=== PATIENT | male | born 1960 | race American Indian/Alaskan Native ===

== ENCOUNTER 2019-11-02 11:28 | Observation (INO) | payer OTHER ==
--- NOTE | 2019-11-02 12:38 | Event Note ---
ED Screening Note ED Screening Note: 59-year-old F Pakistani male with past medical history of diabetes and uncontrolled hypertension presents emerge department complaining of left upper extremity weakness and and inability to open and close hands lasting for several minutes before resolving spontaneously. He reports no current chest pain no at axia but takes insulin, amlodipine, losartan, hydrochlorothiazide and daily aspirin. Plan evaluate his unilateral weakness This initial assessment/diagnostic orders/clinical plan/treatment(s) is/are subject to change based on patients health status, clinical progression and re- assessment by fellow clinical providers in the ED. Further treatment and workup at subsequent clinical providers discretion. Patient/guardian urged not to elope from the ED as their condition may be serious if not clinically assessed and managed. Initial orders include:
[2019-11-02 12:56] LABS: Basophils % (Auto) 0.4 % (0.0-1.8); Eosinophils % (Auto) 0.3 % (0.0-4.3); Hematocrit 44.1 % (35.5-45.6); Hemoglobin 14.9 gm/dl (11.8-15.2); Lymphocytes # (Auto) 2.1 K/mm3 (1.2-5.4); Lymphocytes % (Auto) 22.3 % (13.4-35.0); Mean Corpuscular HGB Conc 34 % (32-34); Mean Corpuscular Volume 81 fl (84-94); Monocytes # (Auto) 0.5 K/mm3 (0.0-0.8); Monocytes % (Auto) 5.4 % (0.0-7.3); Platelet Count 237 K/mm3 (140-440); Red Blood Count 5.44 M/mm3 (3.65-5.03); Red Cell Distribution Width 15.7 % (13.2-15.2)
[2019-11-02 13:07] LABS: INR 1.04 (0.87-1.13); Partial Thromboplastin Time 26.4 Sec. (24.2-36.6); Thrombin Time 16.3 Sec. (15.1-19.6)
[2019-11-02 13:16] LABS: Creatine Kinase MB 1.6 ng/mL (0.0-4.0)
--- NOTE | 2019-11-02 13:16 | XRay Report ---
CHEST 1 VIEW 12:54 PM INDICATION / CLINICAL INFORMATION: Left-sided weakness. COMPARISON: 09/20/2015. FINDINGS: SUPPORT DEVICES: None. HEART / MEDIASTINUM: The heart size and pulmonary vasculature are normal. LUNGS / PLEURA: No significant pulmonary or pleural abnormality. No pneumothorax. ADDITIONAL FINDINGS: No significant additional findings. IMPRESSION: No acute abnormality or significant change. Signer Name: Ankit Rodriguez MD Signed: 11/02/2019 1:11 PM Workstation Name: [id number]
[2019-11-02 13:17] LABS: Alanine Aminotransferase 26 units/L (7-56); Albumin 4.8 g/dL (3.9-5); BUN/Creatinine Ratio 19; Blood Urea Nitrogen 17 mg/dL (9-20); Calcium 10.3 mg/dL (8.4-10.2); Hemolysis Index 13
--- NOTE | 2019-11-02 13:21 | Emergency Department Report ---
HPI - General Chief Complaint: Neuro Symptoms/Deficit Time Seen by Provider: 11/02/19 13:03 - HPI HPI: 59-year-old male presents to the emergency department with the complaint of having left arm and left leg numbness and weakness yesterday late morning after taking a nap. The symptoms lasted for about 1 hour and then resolved. The patient has been having left leg neuropathic pain for the past month that has made it painful for him to walk, and the neuropathy has continued. He denies any headache, vision change, chest pain, fever. He has a history of diabetes and hypertension. His primary care physician is Dr. Halle Lee. No recent travel or sick contacts at home. ED Past Medical Hx - Past Medical History Previous Medical History?: Yes Hx Hypertension: Yes Hx Diabetes: Yes - Surgical History Past Surgical History?: No - Social History Smoking Status: Never Smoker - Medications Home Medications: Home Medications Medication Instructions Recorded Confirmed Last Taken Type Amlodipine Besylate [Norvasc] 10 mg PO DAILY #30 09/20/15 11/02/19 09/19/15 Rx yes Losartan [Cozaar] 50 mg PO QDAY #30 09/20/15 11/02/19 09/19/15 Rx yes hydroCHLOROthiazide [Hctz] 12.5 mg PO QDAY #30 capsule 09/20/15 11/02/19 Unknown Rx Glimepiride [Amaryl] 4 mg PO QAM 11/02/19 11/02/19 Unknown History ED Review of Systems ROS: Stated complaint: NUMBNESS UPPER ARM Other details as noted in HPI Comment: All other systems reviewed and negative Constitutional: denies: chills, fever Eyes: denies: eye pain, vision change ENT: denies: ear pain, throat pain Respiratory: denies: cough, shortness of breath Cardiovascular: denies: chest pain, palpitations Gastrointestinal: denies: abdominal pain, vomiting Genitourinary: denies: dysuria, discharge Musculoskeletal: myalgia. denies: joint swelling Skin: denies: rash, lesions Neurological: weakness, numbness. denies: headache Physical Exam - Physical Exam Vital Signs: Vital Signs 11/02/19 11:40 Temperature 98.3 F Pulse Rate 133 H Respiratory 18 Rate Blood Pressure 198/108 [Right] Physical Exam: GENERAL: The patient is well-developed well-nourished. HENT: Normocephalic. Atraumatic. Patient has moist mucous membranes. EYES: Extraocular motions are intact. No nystagmus. NECK: Supple. Trachea is midline. CHEST/LUNGS: Clear to auscultation. There is no respiratory distress noted. HEART/CARDIOVASCULAR: Regular. There is mild to moderate tachycardia. ABDOMEN: Abdomen is soft, nontender. Patient has normal bowel sounds. There is no abdominal distention. SKIN: Skin is warm and dry. NEURO: The patient is awake, alert, and oriented. The patient is cooperative. The patient has no focal neurologic deficits. Normal speech. Cranial nerves II through XII grossly intact. No pronator drift. No dysmetria. MUSCULOSKELETAL: There is no tenderness or deformity. There is no limitation range of motion. There is no evidence of acute injury. ED Course Vital Signs 11/02/19 11:40 Temperature 98.3 F Pulse Rate 133 H Respiratory 18 Rate Blood Pressure 198/108 [Right] ED Medical Decision Making - Lab Data Result diagrams: 11/02/19 12:44 11/02/19 12:44 - EKG Data -: EKG Interpreted by Me EKG shows normal: sinus rhythm, axis, intervals, QRS complexes, ST-T waves (Nonspecific ST-T waves) Rate: tachycardia (116 bpm) - EKG Data When compared to previous EKG there are: no significant change Interpretation: unchanged when compared t (09/19/15) - Radiology Data Radiology results: report reviewed, image reviewed interpreted by me: Chest x-ray does not show any acute process. There are no pleural effusions, obvious pneumonia and there is no pneumothorax. CT HEAD WITHOUT CONTRAST INDICATION / CLINICAL INFORMATION: Stroke symptoms. TECHNIQUE: Axial imaging performed from the skull apex through the skull base without the use of contrast. Sagittal and coronal reformatted images. All CT scans at this location are performed using CT dose reduction for ALARA by means of automated exposure control. COMPARISON: None available. FINDINGS: CEREBRAL PARENCHYMA: Mild nonspecific hypoattenuation is identified in the white matter consistent with chronic microangiopathy. No acute territorial infarct. HEMORRHAGE: None. EXTRA-AXIAL SPACES: Normal in size and morphology for the patient's age. VENTRICULAR SYSTEM: Normal in size and morphology for the patient's age. MIDLINE SHIFT OR HERNIATION: None. CEREBELLUM / BRAINSTEM: No sig nificant abnormality. CALVARIUM: No significant abnormality. ORBITS: Normal as visualized. PARANASAL SINUSES / MASTOID AIR CELLS: Normal as visualized. SOFT TISSUES of HEAD: No significant abnormality. ADDITIONAL FINDINGS: None. IMPRESSION: No acute intracranial abnormality. Mild nonspecific chronic white matter changes. - Medical Decision Making This patient presents to the emergency department with the complaint of having some left-sided numbness and weakness yesterday in which she was unable to move his left arm and left leg with full muscle strength for close to 1 hour. At the time of my examination the patient has had resolution of the symptoms and he does not have any focal, motor or sensory deficits and his cranial nerves are intact. CT scan of the head does not show any bleed, shift, mass, ischemia, or any other acute process. Patient's labs have been mostly unremarkable except for some mild hyperkalemia. Patient presented with some elevated blood pressure but it has come down to a more reasonable level. Overall this sounds like the patient had a TIA. He will be admitted to the hospital for further evaluation with possibilities including carotid ultrasound, echocardiogram, MRI. The patient has been accepted for admission by the hospitalist, Dr. Diaz. Critical Care Time: No Critical care attestation.: If time is entered above; I have spent that time in minutes in the direct care of this critically ill patient, excluding procedure time. ED Disposition Clinical Impression: TIA (transient ischemic attack), Hypertension, Hypokalemia Disposition: OP ADMIT IP TO THIS HOSP Is pt being admited?: Yes Condition: Fair Time of Disposition: 14:05
[2019-11-02] MEDS ORDERED: POTASSIUM CHLORIDE ER 10 MEQ TAB PO NR (13:39)
--- NOTE | 2019-11-02 13:51 | Cat Scan Report ---
CT HEAD WITHOUT CONTRAST INDICATION / CLINICAL INFORMATION: Stroke symptoms. TECHNIQUE: Axial imaging performed from the skull apex through the skull base without the use of cont rast. Sagittal and coronal reformatted images. All CT scans at this location are performed using CT dose reduction for ALARA by means of automated exposure control. COMPARISON: None available. FINDINGS: CEREBRAL PARENCHYMA: Mild nonspecific hypoattenuation is identified in the white matter consistent wi th chronic microangiopathy. No acute territorial infarct. HEMORRHAGE: None. EXTRA-AXIAL SPACES: Normal in size and morphology for the patient's age. VENTRICULAR SYSTEM: Normal in size and morphology for the patient's age. MIDLINE SHIFT OR HERNIATION: None. CEREBELLUM / BRAINSTEM: No significant abnormality. CALVARIUM: No significant abnormality. ORBITS: Normal as visualized. PARANASAL SINUSES / MASTOID AIR CELLS: Normal as visualized. SOFT TISSUES of HEAD: No significant abnormality. ADDITIONAL FINDINGS: None. IMPRESSION: No acute intracranial abnormality. Mild nonspecific chronic white matter changes. Signer Name: Dorian Tran Jr, MD Signed: 11/02/2019 1:47 PM Workstation Name: [id number]
[2019-11-02 14:25] LABS: Free T4 (Free Thyroxine) 1.04 ng/dL (0.76-1.46)
[2019-11-02] MEDS ORDERED: ASPIRIN 81 MG TAB CHEW PO ONE (14:34)
--- NOTE | 2019-11-02 15:23 | History and Physical Report ---
History of Present Illness Date of examination: 11/02/19 Date of admission: 11/02/19 14:05 Chief complaint: L upper extremity weakness History of present illness: 59-year-old male presents to the emergency department with the complaint of having left arm and left leg numbness and weakness yesterday late morning after taking a nap. The symptoms lasted for about 1 hour and then resolved. The patient has been having left leg neuropathic pain for the past month that has made it painful for him to walk, and the neuropathy has continued. He denies any headache, vision change, chest pain, fever. He has a history of diabetes and hypertension. His primary care physician is Dr. Halle Lee. No recent travel or sick contacts at home. - Past Medical History Previous Medical History?: Yes Hx Hypertension: Yes Hx Diabetes: Yes - Surgical History Past Surgical History?: No - Social History Smoking Status: Never Smoker - Medications Home Medications: Home Medications Medication Instructions Recorded Confirmed Last Taken Type Amlodipine Besylate [Norvasc] 10 mg PO DAILY #30 09/20/15 11/02/19 09/19/15 Rx yes Losartan [Cozaar] 50 mg PO QDAY #30 09/20/15 11/02/19 09/19/15 Rx yes hydroCHLOROthiazide [Hctz] 12.5 mg PO QDAY #30 capsule 09/20/15 11/02/19 Unknown Rx Glimepiride [Amaryl] 4 mg PO QAM 11/02/19 11/02/19 Unknown History Review of Systems ROS: Stated complaint: NUMBNESS UPPER ARM Other details as noted in HPI Comment: All other systems reviewed and negative Constitutional: denies: chills, fever Eyes: denies: eye pain, vision change ENT: denies: ear pain, throat pain Respiratory: denies: cough, shortness of breath Cardiovascular: denies: chest pain, palpitations Gastrointestinal: denies: abdominal pain, vomiting Genitourinary: denies: dysuria, discharge Musculoskeletal: myalgia. denies: joint swelling Skin: denies: rash, lesions Neurological: weakness, numbness. denies: headache Medications and Allergies Allergies Allergy/AdvReac Type Severity Reaction Status Date / Time No Known Allergies Allergy Unverified 09/19/15 22:11 Home Medications Medication Instructions Recorded Confirmed Last Taken Type Amlodipine Besylate [Norvasc] 10 mg PO DAILY #30 09/20/15 11/02/19 09/19/15 Rx yes Losartan [Cozaar] 50 mg PO QDAY #30 09/20/15 11/02/19 09/19/15 Rx yes hydroCHLOROthiazide [Hctz] 12.5 mg PO QDAY #30 capsule 09/20/15 11/02/19 Unknown Rx Glimepiride [Amaryl] 4 mg PO QAM 11/02/19 11/02/19 Unknown History Active Meds: Active Medications Potassium Chloride (K-Dur) 30 meq PO ONCE NR Stop: 11/02/19 16:00 Exam - Constitutional Vitals: Temp Pulse Resp BP Pulse Ox 98.3 F 106 H 26 H 147/81 11/02/19 11:40 11/02/19 13:21 11/02/19 14:09 11/02/19 14:01 General appearance: Present: no acute distress, well-nourished - EENT Eyes: Present: PERRL ENT: hearing intact, clear oral mucosa - Neck Neck: Present: supple, normal ROM - Respiratory Respiratory effort: normal Respiratory: bilateral: CTA - Cardiovascular Heart rate: 78 Rhythm: regular Heart Sounds: Present: S1 & S2. Absent: rub, click - Extremities Extremities: no ischemia, pulses intact, pulses symmetrical, No edema Peripheral Pulses: within normal limits - Abdominal General gastrointestinal: Present: soft, non-tender, non-distended, normal bowel sounds Male genitourinary: Present: normal - Rectal Rectal Exam: deferred - Integumentary Integumentary: Present: clear, warm, dry - Musculoskeletal Musculoskeletal: left sided weakness - Psychiatric Psychiatric: appropriate mood/affect, intact judgment & insight - Neurologic Neurologic: CNII-XII intact, moves all extremities - Allied Health Allied health notes reviewed: nursing, case management HEART Score - HEART Score Troponin: Troponin T < 0.010 ng/mL (0.00-0.029) 11/02/19 12:44 Results - Labs CBC & Chem 7: 11/03/19 03:40 11/03/19 03:40 Labs: Laboratory Last Values WBC 9.3 K/mm3 (4.5-11.0) 11/02/19 12:44 RBC 5.44 M/mm3 (3.65-5.03) H 11/02/19 12:44 Hgb 14.9 gm/dl (11.8-15.2) 11/02/19 12:44 Hct 44.1 % (35.5-45.6) 11/02/19 12:44 MCV 81 fl (84-94) L 11/02/19 12:44 MCH 27 pg (28-32) L 11/02/19 12:44 MCHC 34 % (32-34) 11/02/19 12:44 RDW 15.7 % (13.2-15.2) H 11/02/19 12:44 Plt Count 237 K/mm3 (140-440) 11/02/19 12:44 Lymph % (Auto) 22.3 % (13.4-35.0) 11/02/19 12:44 [place] % (Auto) 5.4 % (0.0-7.3) 11/02/19 12:44 Eos % (Auto) 0.3 % (0.0-4.3) 11/02/19 12:44 Baso % (Auto) 0.4 % (0.0-1.8) 11/02/19 12:44 Lymph # 2.1 K/mm3 (1.2-5.4) 11/02/19 12:44 [place] # 0.5 K/mm3 (0.0-0.8) 11/02/19 12:44 Eos # 0.0 K/mm3 (0.0-0.4) 11/02/19 12:44 Baso # 0.0 K/mm3 (0.0-0.1) 11/02/19 12:44 Seg Neutrophils % 71.6 % (40.0-70.0) H 11/02/19 12:44 Seg Neutrophils # 6.7 K/mm3 (1.8-7.7) 11/02/19 12:44 PT 13.4 Sec. (12.2-14.9) 11/02/19 12:40 INR 1.04 (0.87-1.13) 11/02/19 12:40 APTT 26.4 Sec. (24.2-36.6) 11/02/19 12:40 Thrombin Time 16.3 Sec. (15.1-19.6) 11/02/19 12:40 Sodium 140 mmol/L (137-145) 11/02/19 12:44 Potassium 3.2 mmol/L (3.6-5.0) L 11/02/19 12:44 Chloride 99.8 mmol/L (98-107) 11/02/19 12:44 Carbon Dioxide 26 mmol/L (22-30) 11/02/19 12:44 Anion Gap 17 mmol/L 11/02/19 12:44 BUN 17 mg/dL (9-20) 11/02/19 12:44 Creatinine 0.9 mg/dL (0.8-1.5) 11/02/19 12:44 Estimated GFR > 60 ml/min 11/02/19 12:44 BUN/Creatinine Ratio 19 % 11/02/19 12:44 Glucose 210 mg/dL (75-100) H 11/02/19 12:44 Calcium 10.3 mg/dL (8.4-10.2) H 11/02/19 12:44 Total Bilirubin 0.50 mg/dL (0.1-1.2) 11/02/19 12:44 AST 26 units/L (5-40) 11/02/19 12:44 ALT 26 units/L (7-56) 11/02/19 12:44 Alkaline Phosphatase 94 units/L (35-129) 11/02/19 12:44 Total Creatine Kinase 255 units/L (55-170) H 11/02/19 12:44 CK-MB (CK-2) 1.6 ng/mL (0.0-4.0) 11/02/19 12:44 CK-MB (CK-2) Rel Index 0.6 (0-4) 11/02/19 12:44 Troponin T < 0.010 ng/mL (0.00-0.029) 11/02/19 12:44 Total Protein 8.5 g/dL (6.3-8.2) H 11/02/19 12:44 Albumin 4.8 g/dL (3.9-5) 11/02/19 12:44 Albumin/Globulin Ratio 1.3 % 11/02/19 12:44 TSH 1.500 mlU/mL (0.270-4.200) 11/02/19 13:18 Free T4 1.04 ng/dL (0.76-1.46) 11/02/19 13:18 Short CBC 11/02/19 Range/Units 12:44 WBC 9.3 (4.5-11.0) K/mm3 Hgb 14.9 (11.8-15.2) gm/dl Hct 44.1 (35.5-45.6) % Plt Count 237 (140-440) K/mm3 BMP 11/02/19 12:44 Sodium 140 Potassium 3.2 L Chloride 99.8 Carbon Dioxide 26 BUN 17 Creatinine 0.9 Glucose 210 H Calcium 10.3 H Cardiac Enzymes 11/02/19 Range/Units 12:44 Total Creatine Kinase 255 H (55-170) units/L CK-MB (CK-2) 1.6 (0.0-4.0) ng/mL Troponin T < 0.010 (0.00-0.029) ng/mL Liver Function 11/02/19 Range/Units 12:44 Total Bilirubin 0.50 (0.1-1.2) mg/dL AST 26 (5-40) units/L ALT 26 (7-56) units/L Alkaline Phosphatase 94 (35-129) units/L Albumin 4.8 (3.9-5) g/dL Squires/IV: IV Catheter Type [Left INT / Saline Lock Antecubital] Assessment and Plan Advance Directives: Yes (Full code) VTE prophylaxis?: Chemical Plan of care discussed with patient/family: Yes - Patient Problems (1) Acute CVA (cerebrovascular accident) Current Visit: Yes Status: Acute Plan to address problem: MRI pending Clinical picture consistent with acute CVA Will get MRI/MRA and neurology consult (2) Hypertension Current Visit: Yes Status: Chronic Qualifiers: Hypertension type: essential hypertension Qualified Code(s): I10 - Essential (primary) hypertension Plan to address problem: Continue antihypertensives (3) Hypokalemia Current Visit: Yes Status: Acute Plan to address problem: Hypokalemia supplemented (4) T2DM (type 2 diabetes mellitus) Current Visit: Yes Status: Chronic Qualifiers: Diabetes mellitus detention insulin use: without detention use Plan to address problem: Continue hypoglycemics and adjust medications Check hemoglobin A1c (5) DVT prophylaxis Current Visit: Yes Status: Acute Plan to address problem: Heparin 5000 every 12 and GI prophylaxis
[2019-11-02] MEDS ORDERED: HYDROmorphone 1 MG/1 ML INJ IV PRN (15:34)
[2019-11-02] MEDS ORDERED: ACETAMINOPHEN 325 MG TAB PO PRN (15:34)
[2019-11-02] MEDS ORDERED: ONDANSETRON 4 MG/2 ML INJ IV PRN (15:34)
[2019-11-02] MEDS: INSULIN LISPRO 100 UNIT/ML SUB-Q SCH ×2 (18:17→21:26)
[2019-11-02 18:53] LABS: Chol/HDL Ratio 3.08 %
[2019-11-02] MEDS: oxyCODONE /ACETAMINOPHEN 5-325MG TAB PO PRN (21:30)
[2019-11-03 04:25] LABS: Basophils % (Auto) 0.3 % (0.0-1.8); Eosinophils # (Auto) 0.1 K/mm3 (0.0-0.4); Eosinophils % (Auto) 1.7 % (0.0-4.3); Hematocrit 41.6 % (35.5-45.6); Hemoglobin 13.9 gm/dl (11.8-15.2); Lymphocytes # (Auto) 2.6 K/mm3 (1.2-5.4); Lymphocytes % (Auto) 40.1 % (13.4-35.0); Mean Corpuscular HGB Conc 33 % (32-34); Mean Corpuscular Volume 81 fl (84-94); Monocytes # (Auto) 0.7 K/mm3 (0.0-0.8); Monocytes % (Auto) 10.7 % (0.0-7.3); Platelet Count 200 K/mm3 (140-440); Red Blood Count 5.15 M/mm3 (3.65-5.03); Red Cell Distribution Width 15.7 % (13.2-15.2)
[2019-11-03 04:43] LABS: Alanine Aminotransferase 22 units/L (7-56); Albumin 4.1 g/dL (3.9-5); BUN/Creatinine Ratio 24; Blood Urea Nitrogen 19 mg/dL (9-20); Calcium 9.3 mg/dL (8.4-10.2); Hemolysis Index 5
[2019-11-03] MEDS ORDERED: NON-FORMULARY EACH (Amlodipine Besylate [Norvasc] 10 MG) PO SCH (10:00)
[2019-11-03] MEDS: INSULIN LISPRO 100 UNIT/ML SUB-Q SCH ×4 (10:49→21:45)
[2019-11-03] MEDS: GLIMEPIRIDE 4 MG TAB PO SCH (10:51)
[2019-11-03] MEDS: LOSARTAN 50 MG TAB PO SCH (10:51)
[2019-11-03] MEDS: amLODIPine 10 MG TAB PO SCH (10:51)
[2019-11-03] MEDS: ASPIRIN EC 81 MG TAB PO SCH (10:51)
--- NOTE | 2019-11-03 10:57 | Magnetic Resonance Report ---
MRI BRAIN 11/03/2019 INDICATION / CLINICAL INFORMATION: MAIN: tia, LT ARM AND LEG NUMBNESS, DIFFICULTY WALKING. TECHNIQUE: Multiplanar, multisequence MR images of the brain were obtained. COMPARISON: CT brain 11/02/2019 FINDINGS: BRAIN / INTRACRANIAL CONTENTS: Unenhanced MR images of the brain demonstrate some patchy foci of rest ricted diffusion in the high right parietal cortex, consistent with acute ischemic change. This appea r to be associated with a branch of the right middle cerebral artery distribution. Brain parenchyma shows no other areas of focal or confluent ischemic change. Underlying moderate chronic white matter T2 weighted hyperintensities are present in the periventricu lar and deep white matter of cerebral hemispheres bilaterally. There is some punctate hemosiderin dep osition foci present in the left periventricular white matter, consistent with remote microhemorrhage . There is no evidence of acute hemorrhage. Ventricles and sulci are normal in size and shape for a pat ient of this age. There are no abnormal extra-axial fluid collections. EXTRACRANIAL: Incidental note is made of a subcutaneous scalp lipoma or sebaceous cyst in the right p osterior parietal region, measuring 2.8 cm in length. CRANIOCERVICAL JUNCTION: No significant abnormality. VASCULAR FLOW-VOIDS: No significant abnormality. IMPRESSION: A few small foci of restricted diffusion noted in the right parietal cortex, consistent with acute i schemic injury. Underlying chronic microangiopathic changes. Signer Name: Kilo Horn MD Signed: 11/03/2019 10:52 AM Workstation Name: [id number]
--- NOTE | 2019-11-03 10:58 | Magnetic Resonance Report ---
MRA HEAD 11/03/2019 INDICATION / CLINICAL INFORMATION: MAIN: tia, LT ARM AND LEG NUMBNESS, DIFFICULTY WALKING. TECHNIQUE: Routine MRA of the head is performed. 3-D/MIP reformats postprocessed. COMPARISON: None available. FINDINGS: MRA HEAD: Intracranial internal carotid arteries: No significant abnormality. Anterior cerebral arteries: Atherosclerotic irregularity noted. Middle cerebral arteries: Atherosclerotic irregularity is noted, somewhat more visible on the left th an the right. Intracranial vertebral arteries: No significant abnormality. Basilar artery: Mild atherosclerotic irregularity Posterior cerebral arteries: Moderate atherosclerotic irregularity bilaterally IMPRESSION: Intracranial atherosclerotic irregularity noted in the anterior and posterior circulatio n vessels. Signer Name: Kilo Horn MD Signed: 11/03/2019 10:54 AM Workstation Name: [id number]
--- NOTE | 2019-11-03 11:00 | Magnetic Resonance Report ---
MRA NECK 11/03/2019 INDICATION / CLINICAL INFORMATION: MAIN: TIA, LEFT ARM AND LEG NUMBNESS, DIFFICULTY WALKING. TECHNIQUE: Routine MRA of the neck are performed. 3-D/MIP reformats postprocessed. Percentage stenosis is deter mined by direct quantitative measurements of distal internal carotid artery diameter compared with no rmal reference segments or by criteria similar to NASCET where applicable. COMPARISON: None available. FINDINGS: Unenhanced MR angiographic images of the neck were obtained. 3D/MIP reformats were post-processed. Carotid bifurcations: There is no evidence of carotid bifurcation stenosis. Common carotid arteries: No significant abnormality. Cervical internal carotid arteries: No significant abnormality. Cervical vertebral arteries: No significant abnormality. Visible aortic arch: Not well seen IMPRESSION: No significant abnormality Signer Name: Kilo Horn MD Signed: 11/03/2019 10:56 AM Workstation Name: [id number]
--- NOTE | 2019-11-03 12:51 | Consultation ---
History of Present Illness Consult date: 11/03/19 Reason for Consult: Transient LUE weakness Chief complaint: Transient LUE weakness History of present illness: Patient is a 59 y/o man w/ a h/o HTN and DM. Patient presented yesterday after he had experienced symptoms of LUE weakness and numbness which occurred on 11/01/19. Symptoms are described as Lt. UE weakness, as he had difficulty lifting it up, which lasted for about 1 hour, and then symptoms resolved. Patient states that he currently does not have any symptoms. He also states that he has a chronic left lumbar pain, which radiates from lower back to left leg. He takes ASA 81mg daily at home, and has been compliant. Past History Past Medical History: diabetes, hypertension Social history: no significant social history Family history: hypertension Medications and Allergies Allergies Allergy/AdvReac Type Severity Reaction Status Date / Time No Known Allergies Allergy Unverified 09/19/15 22:11 Home Medications Medication Instructions Recorded Confirmed Last Taken Type Amlodipine Besylate [Norvasc] 10 mg PO DAILY #30 09/20/15 11/02/19 09/19/15 Rx yes Losartan [Cozaar] 50 mg PO QDAY #30 09/20/15 11/02/19 09/19/15 Rx yes hydroCHLOROthiazide [Hctz] 12.5 mg PO QDAY #30 capsule 09/20/15 11/02/19 Unknown Rx Glimepiride [Amaryl] 4 mg PO QAM 11/02/19 11/02/19 Unknown History Active Meds: Active Medications Acetaminophen (Tylenol) 650 mg PO Q4H PRN PRN Reason: Pain MILD(1-3)/Fever >100.5/REZA Amlodipine Besylate (Amlodipine) 10 mg PO DAILY [facility] Last Admin: 11/03/19 10:51 Dose: 10 mg Documented by: Aspirin (Halfprin Ec) 81 mg PO QDAY [facility] Last Admin: 11/03/19 10:51 Dose: 81 mg Documented by: Atorvastatin Calcium (Lipitor) 40 mg PO QHS [facility] Last Admin: 11/02/19 21:26 Dose: 40 mg Documented by: Glimepiride (Amaryl) 4 mg PO QAMDIAB [facility] Last Admin: 11/03/19 10:51 Dose: 4 mg Documented by: Hydromorphone HCl (Dilaudid) 0.5 mg IV Q3H PRN PRN Reason: Pain , Severe (7-10) Last Admin: 11/03/19 10:56 Dose: 0.5 mg Documented by: Insulin Human Lispro (Humalog) 0 unit SUB-Q ACHS [facility]; Protocol Last Admin: 11/03/19 10:49 Dose: Not Given Documented by: Losartan Potassium (Cozaar) 50 mg PO QDAY [facility] Last Admin: 11/03/19 10:51 Dose: 50 mg Documented by: Ondansetron HCl (Zofran) 4 mg IV Q8H PRN PRN Reason: Nausea And Vomiting Oxycodone/Acetaminophen (Percocet 5/325) 1 tab PO Q6H PRN PRN Reason: Pain, Moderate (4-6) Last Admin: 11/02/19 21:30 Dose: 1 tab Documented by: Sodium Chloride (Sodium Chloride Flush Syringe 10 Ml) 10 ml IV BID [facility] Last Admin: 11/03/19 10:51 Dose: 10 ml Documented by: Sodium Chloride (Sodium Chloride Flush Syringe 10 Ml) 10 ml IV PRN PRN PRN Reason: LINE FLUSH Review of Systems All systems: negative Neurological: weakness, numbness Physical Examination - Vital Signs Vital Signs: Vital Signs Temp Pulse Resp BP 98.3 F 133 H 18 198/108 11/02/19 11:40 11/02/19 11:40 11/02/19 11:40 11/02/19 11:40 - Physical Exam Narrative exam: Patient is alert, awake, oriented x4, follows complex commands. No dysarthria or aphasia noted. EOMI, VFF, tongue midline, bilaterally intact to LT, no facial weakness noted. 5/5 strength in all extremities. Bilaterally intact light touch. Bilaterally intact to FTN and HTS. - Constitutional General appearance: comfortable - Level of Consciousness 1a. Level of Consciousness: alert/keenly responsive - LOC Questions 1b. LOC Questions: answers both correctly - LOC Command 1c. LOC Commands: performs tasks correctly - Best Gaze 2. Best Gaze: normal - Visual 3. Visual: no visual loss - Facial Palsy 4. Facial Palsy: normal symmetrical movement - Motor Arm 5a. Motor Arm Left: no drift 5b. Motor Arm Right: no drift - Motor Leg 6a. Motor Leg Left: no drift 6b. Motor Leg Right: no drift - Limb Ataxia 7. Limb Ataxia: absent - Sensory 8. Sensory: normal - Best Language 9. Best Language: no aphasia - Dysarthria 10. Dysarthria: normal - Extinction and Inattention 11. Extinction/Inattention: no abnormality - Scoring Total Score: 0 Stroke Severity: No Stroke Symptoms Results - Laboratory Findings CBC and BMP: 11/03/19 03:40 11/03/19 03:40 Abnormal Lab Findings: Abnormal Labs 11/02/19 11/02/19 11/02/19 12:44 12:44 12:44 RBC 5.44 H MCV 81 L MCH 27 L RDW 15.7 H Lymph % (Auto) [place] % (Auto) Seg Neutrophils % 71.6 H Potassium 3.2 L Glucose 210 H POC Glucose Hemoglobin A1c 7.3 H Calcium 10.3 H Total Creatine Kinase 255 H Total Protein 8.5 H Triglycerides 11/02/19 11/03/19 11/03/19 12:52 03:40 03:40 RBC 5.15 H MCV 81 L MCH 27 L RDW 15.7 H Lymph % (Auto) 40.1 H [place] % (Auto) 10.7 H Seg Neutrophils % Potassium 3.1 L Glucose 134 H POC Glucose Hemoglobin A1c Calcium Total Creatine Kinase Total Protein Triglycerides 175 H 11/03/19 11:52 RBC MCV MCH RDW Lymph % (Auto) [place] % (Auto) Seg Neutrophils % Potassium Glucose POC Glucose 165 H Hemoglobin A1c Calcium Total Creatine Kinase Total Protein Triglycerides Assessment and Plan Patient is a 59 y/o man w/ a h/o HTN and DM, who p/w left arm numbness and weakness. According to the patient's clinical findings, he has had an acute ischemic stroke. Plan: 1. Stroke: - MRI brain: revealed Right small infarcts in MCA and [employer]POR[employer] E[employer] territory. - MRA head/neck: No significant stenosis. - CT head: no acute abnormality. - Echo: EF 55-60%, LA normal size, bubble study negative. -Recommend dual antiplatelet therapy with aspirin 81 mg daily and Plavix 75 mg daily for 30 days, after which Plavix can be stopped. Discussed risks and benefits of dual antiplatelet therapy with patient, and patient agreed to take this. - Cont. statin. LDL goal <70. Currentl LDL 89, and patient states he takes statin at home. Will start atorvastatin 40mg daily. - Telemetry monitoring while in house - PT evaluation. - ST not required as patient is currently asymptomatic. - DVT Ppx: Recommend lovenox - As etiology of stroke is cryptogenic, recommend for long-term cardiac monitoring with 30-day MCOT and ILR to be done with cardiology as outpatient. 2. Hypertension: - Recommend BP goal of normotension, as it has been >48 hours since symptom onset. - Will sign off, as neurologic workup is complete, and treatment plan is on place. Please call with any questions. Thank you for allowing me to take part in the care of this patient. Kadeem Case MD Neurology This clinical encounter was provided via live telemedicine platform. Consultative service was provided for neurology to support local providers. The Acute Teleneurology team should be contacted with any neurologic worsening or clinical changes, new test results, or new patient history that is reported to or discovered by the local team following completion of the teleneurology consultation, specifically that which has the potential to impact the consultative recommendations. Patient/Family was informed the Neurology Consult would happen via TeleHealth consult by way of interactive audio and video telecommunications and consented to receiving care in this manner. Due to the potential for life-threatening deterioration due to underlying neurologic illness, and limited resources available for patient care, telemedicine was used as means of patient care. Telemedicine consultation is limited in the extent of physical exam that can be virtually provided. Time spent evaluating patient includes time for face to face visit via telemedicine, review of medical records, imaging studies and discussion of findings with providers, the patient and/or family.
--- NOTE | 2019-11-03 17:50 | Progress Note ---
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 - MRA head/neck: No significant stenosis. - CT head: no acute abnormality. - Echo: EF 55-60%, LA normal size, bubble study negative. -Recommend dual antiplatelet therapy with aspirin 81 mg daily and Plavix 75 mg daily for 30 days, after which Plavix can be stopped. Discussed risks and benefits of dual antiplatelet therapy with patient, and patient agreed to take this. - Cont. statin. LDL goal <70. Currentl LDL 89, and patient states he takes statin at home. Will start atorvastatin 40mg daily. - Telemetry monitoring while in house - PT evaluation. - ST not required as patient is currently asymptomatic. - DVT Ppx: Recommend lovenox - As etiology of stroke is cryptogenic, recommend for long-term cardiac monitoring with 30-day MCOT and ILR to be done with cardiology as outpatient. 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 The symptoms lasted for about 1 hour and then resolved. The patient has been having left leg neuropathic pain for the past month that has made it painful for him to walk, and the neuropathy has continued. He denies any headache, vision change, chest pain, fever. He has a history of diabetes an d hypertension. His primary care physician is Dr. Halle Lee. No recent travel or sick contacts at home. Slight improvement in her symptoms. Neurology consult appreciated Objective - Constitutional Vitals: Vital Signs - 12hr 11/03/19 11/03/19 11/03/19 07:59 10:00 10:51 Temperature 98.6 F Pulse Rate 85 85 Respiratory 20 Rate Blood Pressure 128/68 128/68 O2 Sat by Pulse 98 95 Oximetry 11/03/19 11/03/19 11:41 16:35 Temperature 98.2 F Pulse Rate 97 H Respiratory 18 20 Rate Blood Pressure 199/104 197/90 O2 Sat by Pulse 98 Oximetry General appearance: Present: no acute distress, well-nourished - EENT Eyes: PERRL, EOM intact ENT: hearing intact, clear oral mucosa Ears: bilateral: normal - Neck Neck: supple, normal ROM - Respiratory Respiratory effort: normal Respiratory: bilateral: CTA - Breasts Breasts: normal - Cardiovascular Heart rate: 78 Rhythm: regular Heart Sounds: Present: S1 & S2. Absent: gallop, rub Extremities: pulses intact, No edema, normal color, Full ROM - Gastrointestinal General gastrointestinal: Present: soft, non-tender, non-distended, normal bowel sounds - Genitourinary Male genitourinary: normal - Integumentary Integumentary: clear, warm, dry - Musculoskeletal Musculoskeletal: 1, strength equal bilaterally - Neurologic Neurologic: moves all extremities - Psychiatric Psychiatric: memory intact, appropriate mood/affect, intact judgment & insight - Labs CBC & Chem 7: 11/03/19 03:40 11/03/19 03:40 Labs: Abnormal lab results 11/02/19 11/03/19 11/03/19 Range/Units 12:52 03:40 03:40 RBC 5.15 H (3.65-5.03) M/mm3 MCV 81 L (84-94) fl MCH 27 L (28-32) pg RDW 15.7 H (13.2-15.2) % Lymph % (Auto) 40.1 H (13.4-35.0) % [place] % (Auto) 10.7 H (0.0-7.3) % Potassium 3.1 L (3.6-5.0) mmol/L Glucose 134 H (75-100) mg/dL POC Glucose (70-105) Triglycerides 175 H (2-149) mg/dL 11/03/19 Range/Units 11:52 RBC (3.65-5.03) M/mm3 MCV (84-94) fl MCH (28-32) pg RDW (13.2-15.2) % Lymph % (Auto) (13.4-35.0) % [place] % (Auto) (0.0-7.3) % Potassium (3.6-5.0) mmol/L Glucose (75-100) mg/dL POC Glucose 165 H (70-105) Triglycerides (2-149) mg/dL HEART Score - HEART Score Troponin: Troponin T < 0.010 ng/mL (0.00-0.029) 11/02/19 12:44
[2019-11-03] MEDS: hydrALAZINE 20 MG/1 ML INJ IV PRN (21:34)
[2019-11-03] MEDS: oxyCODONE /ACETAMINOPHEN 5-325MG TAB PO PRN (22:19)
[2019-11-04] MEDS: hydrALAZINE 20 MG/1 ML INJ IV PRN ×2 (06:27→16:15)
[2019-11-04] MEDS: INSULIN LISPRO 100 UNIT/ML SUB-Q SCH ×2 (09:37→14:22)
[2019-11-04] MEDS: GLIMEPIRIDE 4 MG TAB PO SCH (09:37)
[2019-11-04] MEDS: amLODIPine 10 MG TAB PO SCH (09:37)
[2019-11-04] MEDS: ASPIRIN EC 81 MG TAB PO SCH (09:37)
[2019-11-04] MEDS: LOSARTAN 50 MG TAB PO SCH (09:37)
[2019-11-04] MEDS ORDERED: CLOPIDOGREL 75 MG TAB PO SCH (10:00)
--- NOTE | 2019-11-04 15:22 | Discharge Summary ---
Providers - Providers Date of Admission: 11/02/19 14:05 Date of discharge: 11/04/19 Attending physician: JIMMY SIMEON 11/02/19 15:34 Consult to Physician [CONS] Routine Comment: Consulting Provider: KATHY CASE Physician Instructions: Reason For Exam: TIA 11/03/19 13:37 Consult to Dietitian/Nutrition [CONS] Stat Physician Instructions: Please call Dr. Case to discuss: [phone] Reason For Exam: Post-stroke nutrition education Reason for Consult: Diet education 11/04/19 10:44 Physical Therapy Evaluation and Treat [CONS] Routine Comment: Reason For Exam: stroke Primary care physician: [employer] Hospitalization Condition: Fair Hospital course: Subjective 11/04/2019 59-year-old male presents to the emergency department with the complaint of having left arm and left leg numbness and weakness yesterday late morning after taking a nap. The symptoms lasted for about 1 hour and then resolved. The patient has been having left leg neuropathic pain for the past month that has made it painful for him to walk, and the neuropathy has continued. He denies any headache, vision change, chest pain, fever. He has a history of diabetes and hypertension. His primary care physician is Dr. Halle Lee. No recent travel or sick contacts at home. Slight improvement in her symptoms. Neurology consult appreciated Sx improved (1) Acute CVA (cerebrovascular accident) Current Visit: Yes Status: Acute Plan to address problem: - MRI brain: revealed Right small infarcts in MCA and INFRASTRUCTURE ANALYST territory. - MRA head/neck: No significant stenosis. - CT head: no acute abnormality. - Echo: EF 55-60%, LA normal size, bubble study negative. -Recommend dual antiplatelet therapy with aspirin 81 mg daily and Plavix 75 mg daily for 30 days, after which Plavix can be stopped. Discussed risks and benefits of dual antiplatelet therapy with patient, and patient agreed to take this. - Cont. statin. LDL goal <70. Currentl LDL 89, and patient states he takes statin at home. Will start atorvastatin 40mg daily. - Telemetry monitoring while in house - PT evaluation. - ST not required as patient is currently asymptomatic. - DVT Ppx: Recommend lovenox - As etiology of stroke is cryptogenic, recommend for long-term cardiac monitoring with 30-day MCOT and ILR to be done with cardiology as outpatient. (2) Hypertension Current Visit: Yes Status: Chronic Qualifiers: Hypertension type: essential hypertension Qualified Code(s): I10 - Essential (primary) hypertension Plan to address problem: Continue antihypertensives (3) Hypokalemia Current Visit: Yes Status: Acute Plan to address problem: Hypokalemia supplemented (4) T2DM (type 2 diabetes mellitus) Current Visit: Yes Status: Chronic Qualifiers: Diabetes mellitus fpc insulin use: without fpc use Plan to address problem: Continue hypoglycemics and adjust medications hemoglobin A1c-- (5) DVT prophylaxis Current Visit: Yes Status: Acute Plan to address problem: Heparin 5000 every 12 and GI prophylaxis Disposition: - TO HOME OR SELFCARE - Discharge Diagnoses (1) Acute CVA (cerebrovascular accident) Status: Acute (2) Hypertension Status: Chronic Qualifiers: Hypertension type: essential hypertension Qualified Code(s): I10 - Essential (primary) hypertension (3) Hypokalemia Status: Acute (4) T2DM (type 2 diabetes mellitus) Status: Chronic Qualifiers: Diabetes mellitus fpc insulin use: without fpc use (5) DVT prophylaxis Status: Acute Core Measure Documentation - Palliative Care Palliative Care/ Comfort Measures: Not Applicable - Core Measures Any of the following diagnoses?: none Exam - Constitutional Vitals: Temp Pulse Resp BP Pulse Ox 98.4 F 113 H 20 173/98 99 11/04/19 11:51 11/04/19 11:51 11/04/19 11:51 11/04/19 11:51 11/04/19 11:51 General appearance: Present: no acute distress, well-nourished - EENT Eyes: Present: PERRL ENT: hearing intact, clear oral mucosa - Neck Neck: Present: supple, normal ROM - Respiratory Respiratory effort: normal Respiratory: bilateral: CTA - Cardiovascular Heart rate: 78 Rhythm: regular Heart Sounds: Present: S1 & S2. Absent: rub, click - Extremities Extremities: pulses symmetrical, No edema Peripheral Pulses: within normal limits - Abdominal General gastrointestinal: Present: soft, non-tender, non-distended, normal bowel sounds Male genitourinary: Present: normal - Integumentary Integumentary: Present: clear, warm, dry - Musculoskeletal Musculoskeletal: left sided weakness - Psychiatric Psychiatric: appropriate mood/affect, intact judgment & insight - Neurologic Neurologic: CNII-XII intact, focal deficits (LUE 4/5 ) Plan Activity: no restrictions Diet: low salt, diabetic Follow up with: PRIMARY CAREMD [Primary Care Provider] - 3-5 Days RICHIE MEDINA MD [Staff Physician] - 7 Days
[2019-11-04 16:02] VITALS: BP 192/91
== END 2019-11-04 16:30 | disposition home or self-care (01) ==
LOC: ED 11:28 → 4A 14:05
PROVIDERS: ADMIT Internal Medicine; ATTEND Internal Medicine
DX: G45.9 Transient cerebral ischemic attack, unspecified (principal); I10 Essential (primary) hypertension; E11.9 Type 2 diabetes mellitus without complications; E87.6 Hypokalemia; Z79.84 Long term (current) use of oral hypoglycemic drugs; Z79.899 Other long term (current) drug therapy
CPT/HCPCS: 36415; 70450; 70544; 70547; 70551; 71045; 80053; 80061; 82550; 82553; 82962; 83036; 84439; 84443; 84484; 85025; 85610; 85670; 85730; 93005; 93306; 94760; 96372; 96374; 96375; 96376; 97161; 99285; A9270; G0378; J0360; J1170